=== PATIENT | male | born 1960 | race Caucasian/White ===

== ENCOUNTER 2016-06-10 11:41 | Emergency (ER) | payer OTHER, BC ==
[~2016-06-10] VITALS: Ht 175.3 cm; Wt 87.1 kg
[~2016-06-10 11:41] MED LIST: CRS10 PO; LISI10TA PO; NXM/40 PO
[2016-06-10 11:43] VITALS: BP 149/93; PULSE 90; TEMP 36.6; O2SAT 97; Ht 175.3 cm; Wt 87.1 kg
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
== END 2016-06-10 12:44 | disposition home or self-care (01) ==
LOC: C.EDB 11:43 → C.EDD 12:44
DX: S00.01XA Abrasion of scalp, initial encounter (principal); S00.03XA Contusion of scalp, initial encounter; M54.5 Low back pain; V53.5XXA Driver of pick-up truck or van injured in collision with car, pick-up truck or van in traffic accident, initial encounter; Y99.0 Civilian activity done for income or pay; I10 Essential (primary) hypertension; K25.9 Gastric ulcer, unspecified as acute or chronic, without hemorrhage or perforation; F17.200 Nicotine dependence, unspecified, uncomplicated

== ENCOUNTER → 2016-06-11 | Outpatient (CLI) | payer BC ==
[2016-06-11 09:45] LABS: ESTIMATED AVERAGE GLUCOSE 126 mg/dl; HA1C FLAG Normal (Normal)
[2016-06-11 09:49] LABS: ALT/SGPT 52 U/L (12-78); AST/SGOT 23 U/L (15-37); BLOOD UREA NITROGEN 21 mg/dl (7-18); BUN/CREATININE RATIO 19.5 (10-20); CALCIUM 8.7 mg/dl (8.5-10.1); CARBON DIOXIDE 29 mmol/L (21-32); CHLORIDE 99 mmol/L (98-107); GLUCOSE 128 mg/dl (70-99); POTASSIUM 4.2 mmol/L (3.5-5.1); SODIUM 136 mmol/L (136-145)
[2016-06-11 09:54] LABS: ALB/GLOB RATIO 1.4 (0.9-2); ALKALINE PHOSPHATASE 90 U/L (45-117); CHOLESTEROL 132 mg/dl (0-200); CHOLESTEROL/HDL RATIO 2.6; HDL CHOLESTEROL 50 mg/dl; LDL CHOLESTEROL CALCULATED 69 mg/dl; TRIGLYCERIDES 64 mg/dl (0-150); VERY LOW DENSITY LIPOPROT CALC 13 mg/dl
[2016-06-11 10:25] LABS: URINE APPEARANCE CLEAR (CLEAR); URINE BILIRUBIN NEG (NEG); URINE COLOR YELLOW; URINE NITRITE NEG (NEG); URINE SPECIFIC GRAVITY 1.021 (1.000-1.030); UROBILINOGEN NEG (NEG)
[2016-06-11 10:32] LABS: MANUAL MICROSCOPIC REQUIRED? NO; REVIEW REQ? NO
== END | disposition home or self-care (01) ==
LOC: C.LAB1850 06:45
PROVIDERS: ATTEND Internal Medicine
DX: E78.00 Pure hypercholesterolemia, unspecified (principal); E11.9 Type 2 diabetes mellitus without complications; Z12.5 Encounter for screening for malignant neoplasm of prostate; I10 Essential (primary) hypertension

== ENCOUNTER → 2016-11-11 | Outpatient (CLI) | payer BC ==
[2016-11-11 18:33] LABS: ALT/SGPT 50 U/L (12-78); BLOOD UREA NITROGEN 20 mg/dl (7-18); BUN/CREATININE RATIO 20.9 (10-20); CARBON DIOXIDE 26 mmol/L (21-32); CHLORIDE 101 mmol/L (98-107); CREATININE 0.96 mg/dl (0.60-1.40); GLUCOSE 101 mg/dl (70-99); POTASSIUM 3.8 mmol/L (3.5-5.1); SODIUM 137 mmol/L (136-145)
[2016-11-11 18:35] LABS: ALB/GLOB RATIO 1.3 (0.9-2); ALKALINE PHOSPHATASE 76 U/L (45-117); AST/SGOT 28 U/L (15-37)
[2016-11-11 19:03] LABS: CALCIUM 8.8 mg/dl (8.5-10.1)
[2016-11-12 05:58] LABS: ESTIMATED AVERAGE GLUCOSE 131 mg/dl; HA1C FLAG Normal (Normal)
== END | disposition home or self-care (01) ==
LOC: C.LABPBG 11:43
PROVIDERS: ATTEND Internal Medicine
DX: E11.9 Type 2 diabetes mellitus without complications (principal); I10 Essential (primary) hypertension

== ENCOUNTER → 2016-11-13 | Outpatient (CLI) | payer OTHER, BC ==
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
--- NOTE | 2016-11-13 14:18 | DIAGNOSTIC IMAGING REPORT ---
L-SPINE MIN 4 VIEWS ROUTINE CLINICAL HISTORY: BACK PAIN COMPARISON STUDY: No previous studies for comparison. FINDINGS: No acute fractures are visualized. Minor multilevel endplate depressions are felt to be chronic. There are mild multilevel degenerative changes. There are no subluxations. No destructive lesions are evident. IMPRESSION: Mild osteopenia. No acute fractures, subluxations, or destructive lesions are evident Electronically signed by: Sergio Hammond M.D. 11/13/2016 2:17 PM Dictated Date/Time: 11/13/2016 2:16 PM
--- NOTE | 2016-11-13 14:21 | DIAGNOSTIC IMAGING REPORT ---
THORACIC SPINE 3 VIEWS HISTORY: Pain BACK PAIN COMPARISON: None. FINDINGS: There is no fracture. Moderate S-shaped scoliosis. Moderate to rather significant degenerative disc change throughout. No evidence for compression deformity. IMPRESSION: Scoliosis. Moderate degenerative disc change. Electronically signed by: Branden Tovar M.D. 11/13/2016 2:20 PM Dictated Date/Time: 11/13/2016 2:19 PM
== END | disposition home or self-care (01) ==
LOC: C.RAD 13:26
PROVIDERS: ATTEND Internal Medicine
DX: M54.6 Pain in thoracic spine (principal); M54.5 Low back pain; M54.2 Cervicalgia; V43.51XD Car driver injured in collision with sport utility vehicle in traffic accident, subsequent encounter; M41.9 Scoliosis, unspecified

== ENCOUNTER → 2017-08-21 | Outpatient (CLI) | payer BC ==
[2017-08-21 09:39] LABS: ALBUMIN 4.2 gm/dl (3.4-5.0); ALT/SGPT 66 U/L (12-78); BLOOD UREA NITROGEN 23 mg/dl (7-18); CALCIUM 8.9 mg/dl (8.5-10.1); CARBON DIOXIDE 26 mmol/L (21-32); CREATININE 0.91 mg/dl (0.60-1.40); GLUCOSE 116 mg/dl (70-99); SODIUM 133 mmol/L (136-145)
[2017-08-21 09:44] LABS: ALKALINE PHOSPHATASE 74 U/L (45-117); AST/SGOT 36 U/L (15-37); CHOLESTEROL 115 mg/dl (0-200); LDL CHOLESTEROL CALCULATED 58 mg/dl; TOTAL PROTEIN 7.5 gm/dl (6.4-8.2)
[2017-08-21 10:12] LABS: HEMOGLOBIN A1C 6.2 % (4.5-5.6)
== END | disposition home or self-care (01) ==
LOC: C.LAB 06:19
PROVIDERS: ATTEND Internal Medicine
DX: E78.00 Pure hypercholesterolemia, unspecified (principal); I10 Essential (primary) hypertension; R73.09 Other abnormal glucose; Z12.5 Encounter for screening for malignant neoplasm of prostate